=== PATIENT | female | born 1960 | race Asian ===

== ENCOUNTER 2022-07-26 06:06 | Day surgery (SDC) | payer BC ==
[2022-07-25 08:20] VITALS: BMI 31.8
[2022-07-26] MEDS ORDERED: CELECOXIB 200 MG CAPSULE PO ONE (06:35)
[2022-07-26] MEDS ORDERED: CEFAZOLIN 2 GM in DEXTROSE 5%-WATER - 50 ML IVPB ONE (06:35)
[2022-07-26] MEDS ORDERED: TRANEXAMIC ACID 1000 MG/10 ML VIAL IVPUSH ONE (06:35)
[2022-07-26] MEDS ORDERED: MIDAZOLAM HCL 2 MG/2 ML SINGLE DOSE VIAL ONE ×2 (07:04→09:48)
[2022-07-26] MEDS ORDERED: ROPIVACAINE HCL 0.5% 30ML VIAL ONE (07:07)
[2022-07-26] MEDS ORDERED: BUPIVACAINE HCL 50 ML ONE (07:07)
[2022-07-26] MEDS ORDERED: LIDOCAINE HCL/PF 2% SDV 5ML VIAL ONE (07:08)
[2022-07-26] MEDS ORDERED: VANCOMYCIN 1,000 MG VIAL (RESTRICTED TO ID ONLY) ONE (07:08)
[2022-07-26] MEDS ORDERED: PROPOFOL 20 ML ONE ×2 (07:08→09:26)
[2022-07-26] MEDS ORDERED: SODIUM CHLORIDE 0.9% P/F 10 ML VIAL IJ ONE (07:09)
[2022-07-26] MEDS ORDERED: ceFAZolin SODIUM 1 GM VIAL ONE ×2 (07:09)
[2022-07-26] MEDS ORDERED: DEXAMETHASONE SOD PHOSPHATE 4 MG/1 ML VIAL ONE (07:09)
[2022-07-26] MEDS ORDERED: ONDANSETRON 4 MG/2 ML VIAL ONE ×2 (07:09→10:36)
[2022-07-26] MEDS ORDERED: KETOROLAC TROMETHAMINE 30 MG/1 ML VIAL ONE (07:09)
[2022-07-26] MEDS ORDERED: SUCCINYLCHOLINE CHLORIDE 200 MG/10 ML SYRINGE ONE (07:12)
[2022-07-26] MEDS ORDERED: ACETAMINOPHEN 1000 MG/100 ML BAG IVPB ONE (07:47)
[2022-07-26] MEDS ORDERED: LACTATED RINGERS SOLUTION 1,000 ML IV SCH ×2 (08:00→08:15)
[2022-07-26] MEDS ORDERED: MAG HYDROX/AL HYDROX/SIMETH 30 ML UNIT-DOSE CUP PO PRN (08:03)
[2022-07-26] MEDS ORDERED: ALBUTEROL SO4 HFA INHALER IH PRN (08:05)
[2022-07-26] MEDS ORDERED: PROPOFOL 40 ML ONE ×2 (08:25→08:40)
[2022-07-26] MEDS ORDERED: VANCOMYCIN 1,000 MG VIAL (RESTRICTED TO ID ONLY) IVPB ONE (09:38)
[2022-07-26] MEDS ORDERED: ACETAMINOPHEN INJECTION 100 ML IVPB ONE (10:20)
[2022-07-26] MEDS ORDERED: FENTANYL CITRATE/PF 50 MCG/ML VIAL ONE ×3 (10:20→11:15)
[2022-07-26] MEDS: ONDANSETRON 4 MG/2 ML VIAL IVPUSH PRN ×2 (10:42→10:43)
[2022-07-26] MEDS ORDERED: oxyCODONE HCL 5 MG TABLET ONE (11:15)
[2022-07-26] MEDS: oxyCODONE HCL 5 MG TABLET PO PRN ×4 (11:20→22:57)
[2022-07-26] MEDS: CEFAZOLIN SODIUM 2 GM in DEXTROSE 5%-WATER 100 ML IVPB SCH ×2 (15:38→23:12)
[2022-07-26] MEDS: amLODIPine BESYLATE 5 MG TABLET (FP) PO SCH (21:35)
[2022-07-26] MEDS: SENNOSIDES/DOCUSATE COMBO (SENNA PLUS) TABLET (UD) PO SCH (21:35)
[2022-07-26] MEDS: ATORVASTATIN CA 20 MG TABLET (FP) PO SCH (21:35)
[2022-07-26] MEDS: BUDESONIDE/FORMETEROL FUMARATE 160/4.5 mcg INHALER IH SCH (21:37)
[2022-07-27] MEDS: oxyCODONE HCL 5 MG TABLET PO PRN ×6 (03:08→21:05)
[2022-07-27 08:22] LABS: HEMATOCRIT 29.9 % (32.4-45.2); HEMOGLOBIN 10.4 G/dL (10.7-15.3); MCH 35.6 pg (25.7-33.7); MCHC 34.9 g/dl (32.0-36.0); MEAN CELL VOLUME 101.9 fl (80-96); MEAN PLT VOLUME 8.4 fl (7.5-11.1); PLATELET COUNT 271.3 10^3/uL (134-434); RBC 2.93 10^6/uL (3.60-5.2); RDW 12.9 % (11.6-15.6); WHITE BLOOD COUNT 15.1 10^3/uL (4.0-10.8)
[2022-07-27] MEDS: SENNOSIDES/DOCUSATE COMBO (SENNA PLUS) TABLET (UD) PO SCH ×3 (09:43→21:25)
[2022-07-27] MEDS: ENOXAPARIN NA (PORCINE) 30 MG/0.3 ML DISP.SYRIN SQ SCH ×2 (09:44→10:07)
[2022-07-27] MEDS: BUDESONIDE/FORMETEROL FUMARATE 160/4.5 mcg INHALER IH SCH ×2 (09:45→21:07)
[2022-07-27] MEDS: PANTOPRAZOLE 40 MG TABLET PO SCH ×2 (10:05)
[2022-07-27] MEDS: MULTIVITAMINS (DAILY MVI) TABLET (FP) PO SCH ×2 (10:06)
[2022-07-27] MEDS: KETOROLAC TROMETHAMINE 30 MG/1 ML VIAL IVPUSH SCH ×2 (12:04→17:42)
[2022-07-27] MEDS ORDERED: ACETAMINOPHEN 325 MG TABLET (FP) PO PRN (13:40)
[2022-07-27] MEDS ORDERED: HYDROmorphone HCL/PF 1 MG/ML VIAL IVPUSH PRN (13:41)
[2022-07-27] MEDS ORDERED: ENOXAPARIN NA (PORCINE) 30 MG/0.3 ML DISP.SYRIN SQ SCH (20:00)
[2022-07-27] MEDS: ATORVASTATIN CA 20 MG TABLET (FP) PO SCH (21:05)
[2022-07-27] MEDS: amLODIPine BESYLATE 5 MG TABLET (FP) PO SCH (21:05)
[2022-07-27] MEDS ORDERED: MONTELUKAST NA 10 MG TABLET PO SCH (22:00)
[2022-07-28] MEDS: KETOROLAC TROMETHAMINE 30 MG/1 ML VIAL IVPUSH SCH ×2 (00:10→06:01)
[2022-07-28] MEDS: oxyCODONE HCL 5 MG TABLET PO PRN (08:11)
[2022-07-28 08:59] LABS: HEMATOCRIT 27.1 % (32.4-45.2); HEMOGLOBIN 9.5 G/dL (10.7-15.3); MCH 35.1 pg (25.7-33.7); MCHC 35.1 g/dl (32.0-36.0); MEAN PLT VOLUME 8.7 fl (7.5-11.1); PLATELET COUNT 241.9 10^3/uL (134-434); RBC 2.71 10^6/uL (3.60-5.2); RDW 12.7 % (11.6-15.6); WHITE BLOOD COUNT 12.7 10^3/uL (4.0-10.8)
[2022-07-28] MEDS: MULTIVITAMINS (DAILY MVI) TABLET (FP) PO SCH (09:59)
[2022-07-28] MEDS: ENOXAPARIN NA (PORCINE) 30 MG/0.3 ML DISP.SYRIN SQ SCH (09:59)
[2022-07-28] MEDS: SENNOSIDES/DOCUSATE COMBO (SENNA PLUS) TABLET (UD) PO SCH (09:59)
[2022-07-28] MEDS: PANTOPRAZOLE 40 MG TABLET PO SCH (10:00)
[2022-07-28] MEDS: BUDESONIDE/FORMETEROL FUMARATE 160/4.5 mcg INHALER IH SCH (10:00)
[2022-07-28 11:09] VITALS: BP 123/59; PULSE 85; RESP 18; TEMP 98.8
== END 2022-07-28 13:56 | disposition home health service (06) ==
LOC: FASUSAT 06:06 → FM/S 12:15 → FASUSAT 07-28 13:56
PROVIDERS: ATTEND Orthopaedic Surgery
PROC: 8E0Y0CZ Robotic Assisted Procedure of Lower Extremity, Open Approach (ICD-10-PCS; 2022-07-26)
PROC: 0SRC0J9 Replacement of Right Knee Joint with Synthetic Substitute, Cemented, Open Approach (ICD-10-PCS; principal; 2022-07-26 08:32)
DX: M17.11 Unilateral primary osteoarthritis, right knee (principal); I10 Essential (primary) hypertension; J45.909 Unspecified asthma, uncomplicated
CPT/HCPCS: 20985; 27447; C1776; S2900; 36415; 73560-TC-RT-FY; 85027; 94760; 97010-GP; 97116-GP; 97162-GP; C1713; C1889

== ENCOUNTER 2022-09-13 06:32 | Day surgery (SDC) | payer BC ==
[2022-09-02 18:20] VITALS: BMI 31.8
[2022-09-13] MEDS ORDERED: PROPOFOL 40 ML ONE (07:39)
[2022-09-13] MEDS ORDERED: MIDAZOLAM HCL 2 MG/2 ML SINGLE DOSE VIAL ONE (07:39)
[2022-09-13] MEDS ORDERED: SUCCINYLCHOLINE CHLORIDE 200 MG/10 ML SYRINGE ONE (07:39)
[2022-09-13] MEDS ORDERED: KETOROLAC TROMETHAMINE 30 MG/1 ML VIAL ONE (08:03)
[2022-09-13] MEDS ORDERED: DEXAMETHASONE SOD PHOSPHATE 4 MG/1 ML VIAL ONE (08:03)
[2022-09-13] MEDS ORDERED: ONDANSETRON 4 MG/2 ML VIAL ONE (08:03)
[2022-09-13] MEDS ORDERED: PROMETHAZINE HCL 25 MG/1 ML VIAL IVPUSH PRN (08:16)
[2022-09-13] MEDS ORDERED: ACETAMINOPHEN 325 MG TABLET (FP) PO PRN (08:16)
[2022-09-13] MEDS ORDERED: oxyCODONE HCL 5 MG TABLET PO PRN ×2 (08:16)
[2022-09-13] MEDS ORDERED: ONDANSETRON 4 MG/2 ML VIAL IVPUSH PRN (08:16)
[2022-09-13] MEDS ORDERED: FENTANYL CITRATE/PF 50 MCG/ML VIAL ONE (08:49)
[2022-09-13] MEDS ORDERED: oxyCODONE HCL 5 MG TABLET ONE (09:10)
[2022-09-13 09:49] VITALS: BP 135/81; PULSE 62; RESP 20; TEMP 97.3
== END 2022-09-13 11:20 | disposition home or self-care (01) ==
LOC: FASU 06:32
PROVIDERS: ATTEND Orthopaedic Surgery
PROC: 0SSCXZZ Reposition Right Knee Joint, External Approach (ICD-10-PCS; principal; 2022-09-13 08:00)
DX: M25.661 Stiffness of right knee, not elsewhere classified (principal)
CPT/HCPCS: 94760